=== PATIENT | female | born 1985 | race Caucasian/White ===

== ENCOUNTER 2019-08-22 07:24 | Inpatient (IN) ==
[2019-08-22] MEDS ORDERED: DINOPROSTONE 10 MG INSERT PV ONE (10:00)
[2019-08-22] MEDS ORDERED: OXYTOCIN 30 UNITS/500 ML BAG IV PRN (10:00)
--- NOTE | 2019-08-22 10:17 | History & Physical Report ---
Date of Service August 22, 2019 Assessment & Plan (1) Elective induction of labor planned: Patient is a 34 yo at 40 wks by 24.5 wks US, GDMA1, h/o drug use on Subutex, smoker Cervix unfavorable Discussed the findings and limitation of late 2nd trimester US for dating She understands and thinks she is due and likes to be induced Plan to admit, monitor, Cervidil (2) Gestational diabetes mellitus (GDM): History of Present Illness Primary Care Provider: NO PCP Patient is a 34 yo at 40 wks by 24.6 wks US who is admitted for IOL She has no complaints other than discomfort of No ctxs/ LOF/VB/CLEMENTS/ Change in vision +FM's Her has been complicated by 1) GDM A1: normal FS per her, no records 2) Smoker : 10 cig/ day 3) Subutex use, h/o IV Drug use, 4) HCV: seen GI and recommended f/u after delivery 5) Late care seeker: dated by 24.6 wks US Discussed limitation of late 2nd trimester US as dates may differ for up to 2 weeks Her EDC may be 2 weeks off She had an US in December and baby was 4 months for her, no records Allergies Allergy/AdvReac Type Severity Reaction Status Date / Time tramadol AdvReac Intermediate SEIZURES Verified 05/04/19 22:39 Home Medications Home Medications Medication Instructions Recorded Confirmed Type buprenorphine HCl 12 mg SUBLINGUAL DAILY 08/22/19 08/22/19 History vit-iron fum-folic ac 1 tab PO DAILY 08/22/19 08/22/19 History [ Vitamin] Patient History Surgical History History of ear surgery Social History (Updated 08/22/19 @ 10:13 by Samy Barney MD) Preferred Language: Turkmen Communication Ability: Effective Beliefs That Will Affect Care: None marital status: Single Current Living Situation: Significant Other Current Living Situation Comment: daughter, boyfriend Other Information That Helps Us Care for You: No Feels Safe at Home: Yes Safety Concerns: Feels Safe At This Time Smoking Status: Current every day smoker Tobacco Type: cigarettes ; Cigarettes Per Day: 10 ; Hx Alcohol Use: Yes Hx Substance Use: Yes (declines any type of drug use since November 2018) substance use type: former substance user Last Used Substance Other:: 11/2018 OB History 2 FT 's [employer] History 3 SAB No h/o STD's, no HSV Review of Systems All systems reviewed & are unremarkable except as noted in HPI & below Physical Exam Constitutional: WD/WN, vitals as above well developed and well nourished Gastrointestinal (Abdomen): Abd: soft, NT, Gravid Genitourinary: VE; cervix 1-2 cm/ 30%/ soft, -4, ballotable head Bed side US: vertex, FHR and FM's/ breathing seen Results & Data Vital Signs (Past 12 Hours) Vital Signs Temp Pulse Resp BP 08/22/19 08:08 36.5 C 20 08/22/19 07:42 90 141/90 H Monitoring External Monitor 130's reactive Tocodynamometer mild irregular ctxs
[2019-08-22 10:38] LABS: Hematocrit (blood only) 34.6 % (37-47); Mean Corpuscular Hemoglobin 31.3 pg (25-34); Mean Corpuscular Volume 90.1 fL (80-100); Mean Platelet Volume 9.3 fL (7.4-10.4); Platelet Count 236 K/uL (130-400); RDW Standard Deviation 45.8 fL (36.4-46.3); Red Blood Count 3.84 M/uL (4.2-5.4); White Blood Count 11.31 K/uL (4.8-10.8)
[2019-08-22 10:40] LABS: Mean Corpuscular Hgb Conc 34.7 g/dL (32-36)
[2019-08-22] MEDS: CALCIUM CARBONATE 500 MG CHEWABLE TAB PO PRN ×2 (10:43→21:09)
[2019-08-22 10:55] LABS: Albumin Level 2.5 gm/dl (3.4-5.0); BUN Creatinine Ratio 19.4 (10-20); Calcium 9.2 mg/dl (8.5-10.1); Creatinine Clr Calc Pharmacy 122.6 ml/min; Est GFR (African American) 132.3; Est GFR (Non-African American) 114.1; Potassium 3.8 mmol/L (3.5-5.1)
[2019-08-22 10:58] LABS: Albumin Globulin Ratio 0.6 (0.9-2); Bilirubin,Total 0.5 mg/dl (0.2-1); Globulin 4.1 gm/dl (2.5-4.0); Total Protein 6.6 gm/dl (6.4-8.2)
[2019-08-22] MEDS: buprenorphine HCL 2 MG SUBL SL SCH (11:58)
[2019-08-22] MEDS: buprenorphine HCL 8 MG SUBL SL SCH (17:05)
--- NOTE | 2019-08-22 18:36 | Obstetrical Progress Note ---
Date of Service August 22, 2019 Subjective Patient is reevaluated She started to feel ctxs q 2 -3 min, painful but does not need pain meds No LOF/VB No CLEMENTS/ Change in vision/ N&V/ epig or RUQ pain +FM's BP's elevated, normal labs this morning, asymptomatic Plan to stat Labetalol PO, repeat labs and continue to monitor closely Results & Data Vital Signs (Past 12 Hours) Vital Signs Temp Pulse Resp BP 08/22/19 18:26 82 153/102 H 08/22/19 18:11 79 165/99 H 08/22/19 18:10 80 170/103 H 08/22/19 18:09 36.9 C 08/22/19 15:13 36.9 C 08/22/19 15:09 90 138/88 08/22/19 15:08 36.9 C 08/22/19 11:56 36.5 C 08/22/19 08:08 36.5 C 08/22/19 07:42 90 141/90 H
[2019-08-22 18:58] LABS: Basophils # (auto) 0.01 K/uL (0-0.2); Basophils % (auto) 0.1 %; Eosinophils # (auto) 0.17 K/uL (0-0.5); Eosinophils % (auto) 1.6 %; Hematocrit (blood only) 35.1 % (37-47); Hemoglobin 12.2 g/dL (12.0-16.0); Immature Granulocytes # (auto) 0.04 K/uL (0.00-0.02); Immature Granulocytes % (auto) 0.4 %; Lymphocytes % (auto) 28.8 %; Mean Corpuscular Hemoglobin 31.1 pg (25-34); Mean Corpuscular Hgb Conc 34.8 g/dL (32-36); Mean Corpuscular Volume 89.5 fL (80-100); Mean Platelet Volume 9.4 fL (7.4-10.4); Monocytes # (auto) 0.61 K/uL (0.11-0.59); Monocytes % (auto) 5.7 %; Neutrophils # (auto) 6.85 K/uL (1.4-6.5); Neutrophils % (auto) 63.4 %; Platelet Count 241 K/uL (130-400); RDW Standard Deviation 46.1 fL (36.4-46.3); Red Blood Count 3.92 M/uL (4.2-5.4); White Blood Count 10.78 K/uL (4.8-10.8)
[2019-08-22] MEDS: LABETALOL HCL 100 MG TAB PO SCH ×2 (19:17→20:05)
[2019-08-22 19:18] LABS: Albumin Level 2.6 gm/dl (3.4-5.0); BUN Creatinine Ratio 15.2 (10-20); Calcium 9.8 mg/dl (8.5-10.1); Creatinine Clr Calc Pharmacy 132.4 ml/min; Est GFR (African American) 135.6; Potassium 3.8 mmol/L (3.5-5.1)
[2019-08-22 19:21] LABS: Albumin Globulin Ratio 0.6 (0.9-2); Bilirubin,Total 0.6 mg/dl (0.2-1); Globulin 4.2 gm/dl (2.5-4.0); Total Protein 6.8 gm/dl (6.4-8.2)
[2019-08-22] MEDS ORDERED: BUTORPHANOL TARTRATE 1 MG/ML VIAL IV PRN (20:20)
--- NOTE | 2019-08-22 20:24 | Obstetrical Progress Note ---
Date of Service August 22, 2019 Subjective Patient is reevaluated She is painful desires pain meds BP's were elevated, received PO Labetolol Labs WNL VE; 1-2 cm/ 30%/ -3, posterior, cervidil is in FHR categ I [place]: ctxs q3-4 min Discussed with pharmacist, okay to give 1 mg of Stadol Continue to monitor closely Results & Data Vital Signs (Past 12 Hours) Vital Signs Temp Pulse Resp BP 08/22/19 20:12 83 144/93 H 08/22/19 19:57 78 171/101 H 08/22/19 19:42 70 158/92 H 08/22/19 19:27 78 141/93 H 08/22/19 19:19 36.8 C 18 08/22/19 19:12 78 177/103 H 08/22/19 18:42 80 140/97 08/22/19 18:26 82 153/102 H 08/22/19 18:11 79 165/99 H 08/22/19 18:10 80 170/103 H 08/22/19 18:09 36.9 C 20 08/22/19 15:13 36.9 C 20 08/22/19 15:09 90 138/88 08/22/19 15:08 36.9 C 08/22/19 11:56 36.5 C 20
[2019-08-23] MEDS: LACTATED RINGER'S 1,000 ML IV PRN ×4 (00:12→17:47)
[2019-08-23] MEDS ORDERED: BUPIVACAINE 0.25% 30 ML VIAL ONE (00:26)
[2019-08-23] MEDS ORDERED: ePHEDrine sulfate 50 MG/ML AMP ONE (00:26)
[2019-08-23] MEDS ORDERED: fentaNYL citrate 100 MCG/2 ML VIAL ONE (00:26)
[2019-08-23] MEDS ORDERED: fentaNYL 2MCG/ML ROPIV 1.25MG/ML 100 ML BAG EPI ONE (00:26)
[2019-08-23] MEDS ORDERED: OXYTOCIN 30 UNITS/500 ML BAG IV PRN ×2 (00:29→19:02)
--- NOTE | 2019-08-23 01:04 | Anesthesiology Consultation ---
Date of Service August 23, 2019 Assessment & Plan Chart Review Chart Review: Acceptable Risk for Labor Epidural Consults Requested none History Height/Weight Height: 5 ft 3 in Weight: 87.997 kg Allergies Allergy/AdvReac Type Severity Reaction Status Date / Time tramadol AdvReac Intermediate SEIZURES Verified 05/04/19 22:39 Medications Home Medications Medication Instructions Recorded Confirmed Last Taken buprenorphine HCl 12 mg SUBLINGUAL DAILY 08/22/19 08/22/19 08/21/19 15:00 vit-iron fum-folic ac 1 tab PO DAILY 08/22/19 08/22/19 08/21/19 08:00 [ Vitamin] Active Medications Generic Name Dose Route Start Last Admin Trade Name Freq PRN Reason Stop Dose Admin Buprenorphine HCl 4 mg 08/22/19 11:15 08/22/19 11:58 Subutex SL 09/21/19 11:14 4 mg DAILY ALEXX Administration Buprenorphine HCl 8 mg 08/22/19 17:00 08/22/19 17:05 Subutex SL 09/21/19 16:59 8 mg Q24H ALEXX Administration Calcium Carbonate 500 mg 08/22/19 10:00 08/22/19 21:09 Tums PO 09/21/19 09:59 500 mg Q6 PRN Administration Indigestion Lactated Ringer's 1,000 mls @ 125 mls/hr 08/22/19 10:00 08/23/19 00:12 Lr IV 08/24/19 09:59 999 mls/hr .Q8H PRN Administration L&D Protocol Protocol Labetalol HCl 100 mg 08/22/19 18:30 08/22/19 20:05 Normodyne PO 09/21/19 18:29 100 mg BID ALEXX Administration Past Surgical History Surgical History History of ear surgery Social History Smoking Status: Current every day smoker tobacco type: cigarettes Smoking cigarettes per day: 10 Hx Alcohol Use: Yes Hx Substance Use: Yes (declines any type of drug use since November 2018) substance use type: former substance user Last Used Substance Other:: 11/2018 Physical Exam Vital Signs Last Vital Signs Temp 36.8 C 08/22/19 23:05 Pulse 80 08/23/19 01:01 Resp 16 08/22/19 23:05 BP 134/76 08/23/19 01:01 Pulse Ox 99 08/23/19 00:58 Testing Laboratory Results 08/22/19 18:49 08/22/19 18:49 08/22/19 23:51 POC Glucose 128 H
[2019-08-23] MEDS ORDERED: ePHEDrine sulfate 50 MG/ML AMP IV PRN (01:06)
[2019-08-23] MEDS ORDERED: NALOXONE HCL 1 MG in SODIUM CHLORIDE 0.9% 1000ML 1,000 ML IV PRN (01:06)
[2019-08-23] MEDS ORDERED: NALBUPHINE HCL INJ 10 MG/ML AMP IV PRN (01:06)
[2019-08-23] MEDS ORDERED: NALOXONE HCL 0.4 MG/1 ML VIAL/CARP IV PRN (01:06)
[2019-08-23] MEDS ORDERED: DiphenhydrAMINE HCL 50 MG/ML VIAL IV PRN (01:06)
--- NOTE | 2019-08-23 01:17 | Anesthesia Procedure Note ---
Date of Service August 23, 2019 Anesthesia Post Epidural Note Vital Signs Vital Signs: Temp Pulse Resp BP Pulse Ox 36.8 C 82 18 129/92 98 08/22/19 23:05 08/23/19 01:13 08/23/19 00:59 08/23/19 01:11 08/23/19 01:13 Pain Intensity Bilateral Lower Abdomen: Pain Intensity: 7 Notes Mental Status: alert / awake / arousable Nausea / Vomiting: adequately controlled Pain: adequately controlled Airway Patency, RR, SpO2: stable & adequate BP & HR: stable & adequate Hydration State: stable & adequate Neuraxial Anesthesia: was administered and sensory block is resolving Anesthetic Complications: no major complications apparent and Pt Satisfied with anesthetic care Epidural: Removed without complications and With tip intact
[2019-08-23] MEDS: fentaNYL 2MCG/ML ROPIV 1.25MG/ML 100 ML BAG EPI PRN ×2 (08:36→15:07)
[2019-08-23] MEDS ORDERED: ACETAMINOPHEN 500 MG TAB PO PRN (08:39)
[2019-08-23] MEDS: LABETALOL HCL 100 MG TAB PO SCH ×2 (09:03→21:38)
[2019-08-23] MEDS: buprenorphine HCL 2 MG SUBL SL SCH (09:05)
--- NOTE | 2019-08-23 11:28 | Obstetrical Progress Note ---
Date of Service August 23, 2019 Physical Exam Genitourinary: OB Exam Abdomen: + regular contractions Manual OB Exam: + cervical dilation 3 cm, + cervical effacement 60%, + station high and + amniotic fluid clear OB Exam Monitor Tracing: + external FHT monitor used, + external uterine monitor used and + category I AROM with Amni-hook clear fluid Results & Data Vital Signs (Past 12 Hours) Vital Signs Temp Pulse Resp BP Pulse Ox 08/23/19 11:21 87 96 08/23/19 11:19 85 110/67 08/23/19 11:16 87 97 08/23/19 11:11 82 97 08/23/19 11:06 82 97 08/23/19 11:04 85 20 107/61 08/23/19 11:01 99 H 98 08/23/19 10:56 88 98 08/23/19 10:51 87 97 08/23/19 10:49 85 108/66 08/23/19 10:46 78 97 08/23/19 10:41 93 H 98 08/23/19 10:36 82 98 08/23/19 10:34 87 20 113/65 08/23/19 10:31 81 98 08/23/19 10:26 95 H 98 08/23/19 10:21 94 H 128/62 97 08/23/19 10:16 92 H 98 08/23/19 10:11 87 98 08/23/19 10:06 91 H 112/67 97 08/23/19 10:01 86 20 97 08/23/19 09:56 88 97 08/23/19 09:51 102 H 93 08/23/19 09:50 93 H 117/73 08/23/19 09:47 80 93 08/23/19 09:46 101 H 95 08/23/19 09:42 94 H 94 08/23/19 09:41 86 95 08/23/19 09:36 94 H 95 08/23/19 09:34 94 H 119/66 08/23/19 09:31 100 H 20 95 08/23/19 09:29 84 94 08/23/19 09:26 85 94 08/23/19 09:24 94 H 94 08/23/19 09:21 78 95 08/23/19 09:19 93 H 116/69 08/23/19 09:17 82 94 08/23/19 09:16 96 H 95 08/23/19 09:11 77 95 08/23/19 09:06 95 H 97 08/23/19 09:04 98 H 117/70 08/23/19 09:01 96 H 20 95 08/23/19 09:00 82 94 08/23/19 08:56 90 95 08/23/19 08:55 80 94 08/23/19 08:51 107 H 94 08/23/19 08:49 86 112/57 L 92 08/23/19 08:46 95 H 95 08/23/19 08:44 91 H 93 08/23/19 08:41 95 H 95 08/23/19 08:36 87 96 08/23/19 08:34 95 H 18 105/58 L 93 08/23/19 08:31 97 H 95 08/23/19 08:28 83 94 08/23/19 08:26 92 H 95 08/23/19 08:21 82 95 08/23/19 08:19 93 H 109/64 08/23/19 08:16 93 H 95 08/23/19 08:11 82 95 08/23/19 08:06 94 H 95 08/23/19 08:05 88 20 121/65 08/23/19 08:01 91 H 96 08/23/19 07:56 104 H 97 08/23/19 07:53 97 H 93 08/23/19 07:51 99 H 96 08/23/19 07:49 91 H 117/63 08/23/19 07:46 94 H 96 08/23/19 07:41 100 H 96 08/23/19 07:36 95 H 96 08/23/19 07:35 91 H 124/60 08/23/19 07:31 101 H 96 08/23/19 07:26 93 H 96 08/23/19 07:23 96 H 94 08/23/19 07:21 94 H 95 08/23/19 07:19 100 H 115/56 L 08/23/19 07:18 92 H 94 08/23/19 07:16 99 H 95 08/23/19 07:11 95 H 94 08/23/19 07:09 93 H 95 08/23/19 07:05 36.9 C 90 20 109/58 L 08/23/19 07:04 84 95 08/23/19 06:59 99 H 93 08/23/19 06:58 92 H 94 08/23/19 06:54 97 H 93 08/23/19 06:53 90 94 08/23/19 06:49 93 H 99/51 L 94 08/23/19 06:45 98 H 93 08/23/19 06:44 96 H 94 08/23/19 06:39 91 H 94 08/23/19 06:35 97 H 110/57 L 08/23/19 06:34 97 H 95 08/23/19 06:29 98 H 95 08/23/19 06:26 94 H 94 08/23/19 06:24 112 H 95 08/23/19 06:21 89 94 08/23/19 06:20 98 H 99/56 L 08/23/19 06:19 96 H 95 08/23/19 06:15 90 94 08/23/19 06:14 100 H 95 08/23/19 06:09 95 H 96 08/23/19 06:05 93 H 115/59 L 08/23/19 06:04 91 H 94 08/23/19 06:03 99 H 94 08/23/19 06:02 37.1 C 18 08/23/19 05:59 97 H 94 08/23/19 05:54 99 H 95 08/23/19 05:50 93 H 94 08/23/19 05:49 97 H 109/63 92 08/23/19 05:44 98 H 94 08/23/19 05:39 92 H 92 08/23/19 05:34 86 123/73 94 08/23/19 05:31 93 H 94 08/23/19 05:29 97 H 95 08/23/19 05:25 89 94 08/23/19 05:23 89 94 08/23/19 05:20 84 118/69 08/23/19 05:18 88 93 08/23/19 05:15 89 94 08/23/19 05:13 90 94 08/23/19 05:08 90 94 08/23/19 05:04 88 115/73 08/23/19 05:03 89 95 08/23/19 05:01 18 08/23/19 04:58 84 94 08/23/19 04:53 85 94 08/23/19 04:50 82 116/70 94 08/23/19 04:48 90 95 08/23/19 04:43 84 94 08/23/19 04:38 84 95 08/23/19 04:34 87 119/71 08/23/19 04:33 91 H 97 08/23/19 04:28 93 H 96 08/23/19 04:23 88 97 08/23/19 04:20 90 124/75 08/23/19 04:18 97 H 96 08/23/19 04:13 87 96 08/23/19 04:08 93 H 97 08/23/19 04:04 37.1 C 82 18 117/61 08/23/19 04:03 87 95 08/23/19 03:58 112 H 97 08/23/19 03:53 91 H 96 08/23/19 03:48 108 H 98 08/23/19 03:43 107 H 94 08/23/19 03:42 102 H 94 08/23/19 03:38 101 H 95 08/23/19 03:36 111 H 94 08/23/19 03:34 108 H 123/58 L 08/23/19 03:33 106 H 95 08/23/19 03:31 95 H 94 08/23/19 03:28 96 H 95 08/23/19 03:25 98 H 94 08/23/19 03:23 96 H 95 08/23/19 03:20 96 H 135/72 08/23/19 03:18 99 H 16 95 08/23/19 03:15 105 H 94 08/23/19 03:13 96 H 95 08/23/19 03:09 96 H 94 08/23/19 03:08 94 H 94 08/23/19 03:03 99 H 94 08/23/19 02:58 94 H 84 L 08/23/19 02:56 92 H 94 08/23/19 02:53 91 H 95 08/23/19 02:50 91 H 147/85 H 08/23/19 02:48 88 96 08/23/19 02:43 91 H 95 08/23/19 02:38 92 H 97 08/23/19 02:34 101 H 131/81 08/23/19 02:33 92 H 97 08/23/19 02:28 90 95 08/23/19 02:23 103 H 98 01/23/20 02:22 37.1 C 08/23/19 02:20 16 08/23/19 02:19 84 127/72 08/23/19 02:18 83 95 08/23/19 02:16 83 94 08/23/19 02:13 79 94 08/23/19 02:09 82 94 08/23/19 02:08 84 94 08/23/19 02:06 81 125/70 08/23/19 02:03 81 96 08/23/19 02:02 82 94 08/23/19 01:58 80 96 08/23/19 01:53 79 97 08/23/19 01:50 82 142/79 H 08/23/19 01:48 82 96 08/23/19 01:45 16 08/23/19 01:43 80 98 08/23/19 01:38 77 97 08/23/19 01:36 77 137/77 08/23/19 01:33 86 97 08/23/19 01:28 86 98 08/23/19 01:23 75 97 08/23/19 01:21 36.9 C 77 16 124/82 08/23/19 01:18 96 H 99 08/23/19 01:16 93 H 16 115/67 08/23/19 01:13 82 98 08/23/19 01:11 88 129/92 08/23/19 01:08 87 98 08/23/19 01:05 83 18 132/80 08/23/19 01:03 82 127/74 97 08/23/19 01:01 80 134/76 08/23/19 00:59 87 18 135/77 08/23/19 00:58 103 H 99 08/23/19 00:57 88 144/87 H 08/23/19 00:55 96 H 142/75 H 08/23/19 00:53 92 H 97 08/23/19 00:48 94 H 99 08/23/19 00:43 88 97 08/23/19 00:38 88 98 08/23/19 00:30 86 97
[2019-08-23] MEDS: buprenorphine HCL 8 MG SUBL SL SCH (17:03)
[2019-08-23] MEDS ORDERED: SUPERCREAM 0.870% 15 GM JAR EXT PRN (19:02)
[2019-08-23] MEDS ORDERED: BENZOCAINE 20% AER SPR 82.5 GM CAN EXT PRN (19:02)
[2019-08-23] MEDS ORDERED: DIPHTHERIA/TETANUS/PERTUSSIS 0.5 ML SYR/VIAL IM ONE (19:02)
[2019-08-23] MEDS ORDERED: HYDROCORTISONE ACETATE 25 MG SUPP PR PRN (19:02)
[2019-08-23] MEDS ORDERED: ACETAMINOPHEN 325 MG TAB PO PRN (19:02)
[2019-08-23] MEDS ORDERED: bisacodyL 10 MG SUPP PR PRN (19:02)
--- NOTE | 2019-08-23 19:12 | Anesthesia Procedure Note ---
Date of Service August 23, 2019 Anesthesia Post Epidural Note Vital Signs Vital Signs: Temp Pulse Resp BP Pulse Ox 37.3 C 79 20 147/84 H 98 08/23/19 15:10 08/23/19 19:04 08/23/19 11:04 08/23/19 19:04 08/23/19 18:11 Pain Intensity Bilateral Lower Abdomen: Pain Intensity: 0 Notes Mental Status: alert / awake / arousable and participated in evaluation Nausea / Vomiting: adequately controlled Pain: adequately controlled Airway Patency, RR, SpO2: stable & adequate BP & HR: stable & adequate Hydration State: stable & adequate Neuraxial Anesthesia: was administered and sensory block is resolving Anesthetic Complications: no major complications apparent and Pt Satisfied with anesthetic care Epidural: Removed without complications and With tip intact Notes: Epidural site clean, dry and intact. No signs of edema, erythema or bruising at insertion site. Pt instructed to request anesthesia if she has residual lower extremity numbness or if she develops lower extremity pain or weakness, back pain or headache.
--- NOTE | 2019-08-23 19:39 | Delivery Summary ---
Vaginal Delivery Summary Date of Service August 23, 2019 Vaginal Delivery Summary Vaginal Delivery live female over intact perineum NEIL with delayed cord clamping Apgars 9/9 weight pending. Nuchal cord x1 reduced at delivery. Cord blood obtained followed by spontaneous delivery of intact placenta. No tears. EBL 100 ml. Final sponge and instrument count are correct. Mom and baby stable.
[2019-08-23] MEDS: NICOTINE 21 MG/24 HR TDSY TD SCH (19:50)
[2019-08-23] MEDS ORDERED: Nursing to Pharmacy Communication ONE (20:15)
[2019-08-23] MEDS: DOCUSATE SODIUM 100 MG CAP PO SCH (21:38)
[2019-08-23] MEDS: IBUPROFEN 600 MG TAB PO PRN (21:39)
[2019-08-24] MEDS: IBUPROFEN 600 MG TAB PO PRN ×4 (04:14→17:53)
[2019-08-24 06:48] LABS: Hematocrit (blood only) 31.5 % (37-47); Hemoglobin 10.9 g/dL (12.0-16.0); Mean Corpuscular Hemoglobin 31.4 pg (25-34); Mean Corpuscular Hgb Conc 34.6 g/dL (32-36); Mean Corpuscular Volume 90.8 fL (80-100); Mean Platelet Volume 9.6 fL (7.4-10.4); Platelet Count 209 K/uL (130-400); RDW Standard Deviation 46.4 fL (36.4-46.3); Red Blood Count 3.47 M/uL (4.2-5.4); White Blood Count 12.95 K/uL (4.8-10.8)
[2019-08-24] MEDS: PRENATAL VITAMIN 1 TAB PO SCH (08:14)
[2019-08-24] MEDS: DOCUSATE SODIUM 100 MG CAP PO SCH ×2 (08:14→20:12)
[2019-08-24] MEDS: FERROUS SULFATE 325 MG TAB PO SCH (08:14)
[2019-08-24] MEDS: NICOTINE 21 MG/24 HR TDSY TD SCH (08:21)
[2019-08-24] MEDS: buprenorphine HCL 2 MG SUBL SL SCH (08:42)
[2019-08-24] MEDS: LABETALOL HCL 100 MG TAB PO SCH ×2 (08:44→20:12)
[2019-08-24] MEDS ORDERED: buprenorphine HCL 2 MG SUBL SL SCH (09:00)
[2019-08-24] MEDS ORDERED: NON-FORMULARY MEDICATION (Prenatal Vit-Iron Fum-Folic Ac [Prenatal Vitamin] 1 TAB) PO SCH (09:00)
--- NOTE | 2019-08-24 10:24 | Obstetrical Progress Note ---
Date of Service August 24, 2019 Subjective Patient is seen and examined. She feels well, no complaints. Ambulating without dizziness Voiding without difficulty Tolerating regular diet with out N&V Bleeding is minimal No fever/ chills/ CP/ SOB/ N&V/ Leg pain Breast feeding without problems Vital Signs Temp Pulse Pulse Resp BP Pulse Ox 08/24/19 08:40 71 20 136/86 08/24/19 07:56 36.4 C L 83 16 121/76 98 08/24/19 04:15 36.5 C 84 16 143/83 H 98 08/24/19 00:15 36.5 C 90 17 156/84 H 96 Lab Results 08/22/19 08/22/19 08/22/19 Range/Units 10:05 10:16 10:16 WBC 11.31 H (4.8-10.8) K/uL RBC 3.84 L (4.2-5.4) M/uL Hgb 12.0 (12.0-16.0) g/dL Hct 34.6 L (37-47) % MCV 90.1 (80-100) fL MCH 31.3 (25-34) pg MCHC 34.7 (32-36) g/dL RDW Std Deviation 45.8 (36.4-46.3) fL RDW Coeff of Delbert 14.0 (11.5-14.5) % Plt Count 236 (130-400) K/uL MPV 9.3 (7.4-10.4) fL Immature Gran % (Auto) % Neut % (Auto) % Lymph % (Auto) % [place] % (Auto) % Eos % (Auto) % Baso % (Auto) % Immature Gran # (Auto) (0.00-0.02) K/uL Neut # (Auto) (1.4-6.5) K/uL Lymph # (Auto) (1.2-3.4) K/uL [place] # (Auto) (0.11-0.59) K/uL Eos # (Auto) (0-0.5) K/uL Baso # (Auto) (0-0.2) K/uL Sodium 137 (136-145) mmol/L Potassium 3.8 (3.5-5.1) mmol/L Chloride 107 (98-107) mmol/L Carbon Dioxide 24 (21-32) mmol/L Anion Gap 6.0 (3-11) BUN 13 (7-18) mg/dl Creatinine 0.68 (0.6-1.2) mg/dl Est Cr Clr Drug Dosing 122.6 ml/min Est GFR ( Amer) 132.3 Est GFR (Non-Af Amer) 114.1 BUN/Creatinine Ratio 19.4 (10-20) Glucose 102 H (70-99) mg/dl POC Glucose 105 H (70-99) mg/dl Calcium 9.2 (8.5-10.1) mg/dl Total Bilirubin 0.5 (0.2-1) mg/dl AST 22 (15-37) U/L ALT 22 (12-78) U/L Alkaline Phosphatase 151 H (45-117) U/L Lactate Dehydrogenase (84-246) U/L Total Protein 6.6 (6.4-8.2) gm/dl Albumin 2.5 L (3.4-5.0) gm/dl Globulin 4.1 H (2.5-4.0) gm/dl Albumin/Globulin Ratio 0.6 L (0.9-2) 08/22/19 08/22/19 08/22/19 Range/Units 18:49 18:49 18:49 WBC 10.78 (4.8-10.8) K/uL RBC 3.92 L (4.2-5.4) M/uL Hgb 12.2 (12.0-16.0) g/dL Hct 35.1 L (37-47) % MCV 89.5 (80-100) fL MCH 31.1 (25-34) pg MCHC 34.8 (32-36) g/dL RDW Std Deviation 46.1 (36.4-46.3) fL RDW Coeff of Delbert 14.0 (11.5-14.5) % Plt Count 241 (130-400) K/uL MPV 9.4 (7.4-10.4) fL Immature Gran % (Auto) 0.4 % Neut % (Auto) 63.4 % Lymph % (Auto) 28.8 % [place] % (Auto) 5.7 % Eos % (Auto) 1.6 % Baso % (Auto) 0.1 % Immature Gran # (Auto) 0.04 H (0.00-0.02) K/uL Neut # (Auto) 6.85 H (1.4-6.5) K/uL Lymph # (Auto) 3.10 (1.2-3.4) K/uL [place] # (Auto) 0.61 H (0.11-0.59) K/uL Eos # (Auto) 0.17 (0-0.5) K/uL Baso # (Auto) 0.01 (0-0.2) K/uL Sodium 136 (136-145) mmol/L Potassium 3.8 (3.5-5.1) mmol/L Chloride 107 (98-107) mmol/L Carbon Dioxide 22 (21-32) mmol/L Anion Gap 7.0 (3-11) BUN 10 (7-18) mg/dl Creatinine 0.63 (0.6-1.2) mg/dl Est Cr Clr Drug Dosing 132.4 ml/min Est GFR ( Amer) 135.6 Est GFR (Non-Af Amer) 117.0 BUN/Creatinine Ratio 15.2 (10-20) Glucose 80 (70-99) mg/dl POC Glucose (70-99) mg/dl Calcium 9.8 (8.5-10.1) mg/dl Total Bilirubin 0.6 (0.2-1) mg/dl AST 24 (15-37) U/L ALT 21 (12-78) U/L Alkaline Phosphatase 153 H (45-117) U/L Lactate Dehydrogenase 122 (84-246) U/L Total Protein 6.8 (6.4-8.2) gm/dl Albumin 2.6 L (3.4-5.0) gm/dl Globulin 4.2 H (2.5-4.0) gm/dl Albumin/Globulin Ratio 0.6 L (0.9-2) 08/22/19 08/23/19 08/23/19 Range/Units 23:51 06:34 16:35 WBC (4.8-10.8) K/uL RBC (4.2-5.4) M/uL Hgb (12.0-16.0) g/dL Hct (37-47) % MCV (80-100) fL MCH (25-34) pg MCHC (32-36) g/dL RDW Std Deviation (36.4-46.3) fL RDW Coeff of Delbert (11.5-14.5) % Plt Count (130-400) K/uL MPV (7.4-10.4) fL Immature Gran % (Auto) % Neut % (Auto) % Lymph % (Auto) % [place] % (Auto) % Eos % (Auto) % Baso % (Auto) % Immature Gran # (Auto) (0.00-0.02) K/uL Neut # (Auto) (1.4-6.5) K/uL Lymph # (Auto) (1.2-3.4) K/uL [place] # (Auto) (0.11-0.59) K/uL Eos # (Auto) (0-0.5) K/uL Baso # (Auto) (0-0.2) K/uL Sodium (136-145) mmol/L Potassium (3.5-5.1) mmol/L Chloride (98-107) mmol/L Carbon Dioxide (21-32) mmol/L Anion Gap (3-11) BUN (7-18) mg/dl Creatinine (0.6-1.2) mg/dl Est Cr Clr Drug Dosing ml/min Est GFR ( Amer) Est GFR (Non-Af Amer) BUN/Creatinine Ratio (10-20) Glucose (70-99) mg/dl POC Glucose 128 H 81 79 (70-99) mg/dl Calcium (8.5-10.1) mg/dl Total Bilirubin (0.2-1) mg/dl AST (15-37) U/L ALT (12-78) U/L Alkaline Phosphatase (45-117) U/L Lactate Dehydrogenase (84-246) U/L Total Protein (6.4-8.2) gm/dl Albumin (3.4-5.0) gm/dl Globulin (2.5-4.0) gm/dl Albumin/Globulin Ratio (0.9-2) 08/24/19 Range/Units 06:12 WBC 12.95 H (4.8-10.8) K/uL RBC 3.47 L (4.2-5.4) M/uL Hgb 10.9 L (12.0-16.0) g/dL Hct 31.5 L (37-47) % MCV 90.8 (80-100) fL MCH 31.4 (25-34) pg MCHC 34.6 (32-36) g/dL RDW Std Deviation 46.4 H (36.4-46.3) fL RDW Coeff of Delbert 14.0 (11.5-14.5) % Plt Count 209 (130-400) K/uL MPV 9.6 (7.4-10.4) fL Immature Gran % (Auto) % Neut % (Auto) % Lymph % (Auto) % [place] % (Auto) % Eos % (Auto) % Baso % (Auto) % Immature Gran # (Auto) (0.00-0.02) K/uL Neut # (Auto) (1.4-6.5) K/uL Lymph # (Auto) (1.2-3.4) K/uL [place] # (Auto) (0.11-0.59) K/uL Eos # (Auto) (0-0.5) K/uL Baso # (Auto) (0-0.2) K/uL Sodium (136-145) mmol/L Potassium (3.5-5.1) mmol/L Chloride (98-107) mmol/L Carbon Dioxide (21-32) mmol/L Anion Gap (3-11) BUN (7-18) mg/dl Creatinine (0.6-1.2) mg/dl Est Cr Clr Drug Dosing ml/min Est GFR ( Amer) Est GFR (Non-Af Amer) BUN/Creatinine Ratio (10-20) Glucose (70-99) mg/dl POC Glucose (70-99) mg/dl Calcium (8.5-10.1) mg/dl Total Bilirubin (0.2-1) mg/dl AST (15-37) U/L ALT (12-78) U/L Alkaline Phosphatase (45-117) U/L Lactate Dehydrogenase (84-246) U/L Total Protein (6.4-8.2) gm/dl Albumin (3.4-5.0) gm/dl Globulin (2.5-4.0) gm/dl Albumin/Globulin Ratio (0.9-2) PE: General: Alert, orientedx3, NAD Abd: soft, NT, fundus firm, below Umbilicus Perineum intact, Lochia rubra minimal Ext; NT, no edema AP: 34 yo s/p , ppd# 1 VSS Afebrile doing well Continue routine care All questions were answered D/C home tomorrow Results & Data Vital Signs (Past 12 Hours) Vital Signs Temp Pulse Pulse Resp BP Pulse Ox 08/24/19 08:40 71 20 136/86 08/24/19 07:56 36.4 C L 83 16 121/76 98 08/24/19 04:15 36.5 C 84 16 143/83 H 98 08/24/19 00:15 36.5 C 90 17 156/84 H 96
[2019-08-24] MEDS: buprenorphine HCL 8 MG SUBL SL SCH (17:13)
[2019-08-24] MEDS ORDERED: NICOTINE 7 MG/24 HR TDSY TD SCH (17:15)
[2019-08-24] MEDS ORDERED: bisacodyL 5 MG TABEC PO SCH (20:00)
[2019-08-25] MEDS: IBUPROFEN 600 MG TAB PO PRN (07:02)
[2019-08-25 07:16] LABS: Hematocrit (blood only) 34.4 % (37-47); Hemoglobin 11.6 g/dL (12.0-16.0)
[2019-08-25] MEDS: DOCUSATE SODIUM 100 MG CAP PO SCH (10:53)
[2019-08-25] MEDS: PRENATAL VITAMIN 1 TAB PO SCH (10:53)
[2019-08-25] MEDS: FERROUS SULFATE 325 MG TAB PO SCH (10:53)
[2019-08-25] MEDS: LABETALOL HCL 100 MG TAB PO SCH (10:53)
[2019-08-25] MEDS: buprenorphine HCL 2 MG SUBL SL SCH (10:58)
--- NOTE | 2019-08-25 11:02 | Obstetrical Progress Note ---
Date of Service August 25, 2019 Assessment & Plan (1) normal course: PPD #1 pt doing well anticipate disch tomorrow d/c home with instructions Subjective Ambulation: ambulating normally Voiding: no voiding problems Passing Gas:: Yes Diet Tolerance:: regular diet Lochia:: Small Feeding Type:: breast feeding Review of Systems All systems reviewed & are unremarkable except as noted in HPI & below Physical Exam Constitutional WD/WN, vitals as above well developed and well nourished Eyes PERRL, conjunctivae normal, anicteric sclerae Neck trachea midline, no thyromegaly Respiratory normal respiratory effort, lungs clear to auscultation Auscultation: no crackles, no rales and no wheezes Cardiovascular RRR, no murmur, no edema Gastrointestinal (Abdomen) normal bowel sounds, soft, nontender, no hepatosplenomegaly Uterus is below umbilicus Musculoskeletal no cyanosis or clubbing, extremities motor strength 5/5 Skin no rashes, warm and dry Neurologic patellar DTR's 2+ bilat, sensation intact Psychiatric A+Ox3, euthymic affect Genitourinary normal external appearance Results & Data Vital Signs (Past 12 Hours) Vital Signs Temp Pulse Resp BP 08/24/19 23:35 36.5 C 79 18 137/86
--- NOTE | 2019-08-25 11:05 | Obstetrical Progress Note ---
Date of Service August 25, 2019 Assessment & Plan (1) normal course: PPD #2 pt doing well disch home with instructions Subjective Ambulation: ambulating normally Voiding: no voiding problems Passing Gas:: Yes Diet Tolerance:: regular diet Lochia:: Small Feeding Type:: breast feeding Review of Systems All systems reviewed & are unremarkable except as noted in HPI & below Physical Exam Constitutional WD/WN, vitals as above well developed and well nourished Eyes PERRL, conjunctivae normal, anicteric sclerae Neck trachea midline, no thyromegaly Respiratory normal respiratory effort, lungs clear to auscultation Auscultation: no crackles, no rales and no wheezes Cardiovascular RRR, no murmur, no edema Gastrointestinal (Abdomen) normal bowel sounds, soft, nontender, no hepatosplenomegaly Uterus is below umbilicus Musculoskeletal no cyanosis or clubbing, extremities motor strength 5/5 Skin no rashes, warm and dry Neurologic patellar DTR's 2+ bilat, sensation intact Psychiatric A+Ox3, euthymic affect Genitourinary normal external appearance Results & Data Vital Signs (Past 12 Hours) Vital Signs Temp Pulse Resp BP 08/24/19 23:35 36.5 C 79 18 137/86
== END 2019-08-25 12:35 | disposition home or self-care (01) | DRG 807 ==
LOC: 4S1 07:24 → 4S2 08-23 21:00